=== PATIENT | female | born 1985 | race Caucasian/White ===

== ENCOUNTER 2018-12-07 18:08 | Emergency (ER) | payer SELFPAY ==
[~2018-12-07] VITALS: Ht 154.9 cm; Wt 52.0 kg
[2018-12-07 18:11] VITALS: BP 122/68
--- NOTE | 2018-12-07 18:22 | NUR ---
Pt presents to ED with c/o RLQ pain, right flank pain radiating in to right sciatic pain. NADN. Pt c/o burning with urination. Pt denies n/v/d, sob, cp, trauma. Pt provided ua cup and ambulates with steady gait and balance to restroom. No obvious defecits observed.
[2018-12-07 18:47] LABS: MICROSCOPIC NOT IND
--- NOTE | 2018-12-07 18:57 | NUR ---
Provided report to HARI Clay. All questions answered. HARI Clay to assume care of pt.
[2018-12-07 19:01] LABS: CULTURE INDICATED? NO
[2018-12-07 19:37] LABS: BASOPHILS # (AUTO) 0.03 x10^3/uL (0-0.1); BASOPHILS % (AUTO) 1 % (0-1); EOSINOPHILS % (AUTO) 2 % (1-7); LYMPHOCYTES # (AUTO) 1.97 x10^3/uL (1-3.4); LYMPHOCYTES % (AUTO) 34 % (22-44); MD NO; MEAN CORPUSCULAR HEMOGLOBIN 31.4 pg (27.0-34.8); MEAN CORPUSCULAR HGB CONC 32.9 g/dL (32.4-35.8); MEAN CORPUSCULAR VOLUME 95.3 fL (80-100); MEAN PLATELET VOLUME 8.3 fL (7.4-10.4); MONOCYTES # (AUTO) 0.61 x10^3/uL (0.2-0.8); MONOCYTES % (AUTO) 10 % (2-9); NEUTROPHILS # (AUTO) 3.17 x10^3/uL (1.8-6.8); NEUTROPHILS % (AUTO) 54 % (42-75); PLATELET COUNT 275 x10^3/uL (130-400); RED BLOOD COUNT 4.34 x10^6/uL (3.82-5.3); RED CELL DISTRIBUTION WIDTH 12.4 % (9.6-15.2)
[2018-12-07 19:45] LABS: ALBUMIN 3.9 g/dL (3.4-5.0); ANION GAP 7 mmol/L (5-15); CALCIUM 8.8 mg/dL (8.5-10.1); CHLORIDE 106 mmol/L (98-107); CREATININE 0.97 mg/dL (0.55-1.02)
[2018-12-07] MEDS ORDERED: HYDROcodone/APAP 5/325 TABLET ONE (20:46)
[2018-12-07] MEDS ORDERED: CEFTRIAXONE 250 MG ONE (20:46)
[2018-12-07] MEDS ORDERED: AZITHROMYCIN 250 MG TABLET ONE (20:48)
[2018-12-07] MEDS ORDERED: CEFTRIAXONE 250 MG IM ONE (21:00)
[2018-12-07] MEDS ORDERED: AZITHROMYCIN 500 MG TABLET PO ONE (21:00)
[2018-12-07] MEDS ORDERED: HYDROcodone/APAP 5/325 TABLET PO ONE (21:00)
[2018-12-07] MEDS ORDERED: metroNIDAZOLE 500 MG TABLET PO ONE (21:00)
[2018-12-07] MEDS ORDERED: metroNIDAZOLE 500 MG TABLET ONE (21:02)
--- NOTE | 2018-12-07 21:03 | NUR ---
PT MEDICATED ORDERED PELVIC EXAM COMPLETE AND AWAITING TEST RESULTS. PT TEARFUL BUT TOLERATED PROCEDURE.
[2018-12-07 21:07] LABS: CLUE CELLS NONE SEEN (NONE SEEN); WET PREP WBCS NONE SEEN (FEW)
== END 2018-12-07 21:33 | disposition home or self-care (01) ==
LOC: ED 21:00
DX: N73.0 Acute parametritis and pelvic cellulitis (principal); R10.31 Right lower quadrant pain
CPT/HCPCS: 36415; 73502; 76830; 80048; 81003; 82040; 84703; 85025; 87210; 87491; 87591; 87808; 96372; 99284; J0696

== ENCOUNTER 2020-10-03 18:16 | Emergency (ER) | payer MEDICAID ==
[~2020-10-03] VITALS: Ht 154.9 cm; Wt 47.8 kg
[2020-10-03 18:20] VITALS: BP 102/76
[2020-10-03 18:49] LABS: BASOPHILS % (AUTO) 1 % (0-1); EOSINOPHILS % (AUTO) 1 % (1-7); LYMPHOCYTES % (AUTO) 20 % (22-44); MD NO; MEAN CORPUSCULAR HEMOGLOBIN 31.2 pg (27.0-34.8); MEAN CORPUSCULAR HGB CONC 33.7 g/dL (32.4-35.8); MEAN PLATELET VOLUME 7.6 fL (7.4-10.4); MONOCYTES % (AUTO) 8 % (2-9); NEUTROPHILS % (AUTO) 71 % (42-75); PLATELET COUNT 376 x10^3/uL (130-400); RED BLOOD COUNT 4.08 x10^6/uL (3.82-5.3); RED CELL DISTRIBUTION WIDTH 12.1 % (9.6-15.2)
[2020-10-03 19:00] LABS: ANION GAP 5 mmol/L (5-15); CHLORIDE 107 mmol/L (98-107); CREATININE 0.83 mg/dL (0.55-1.02)
[2020-10-03] MEDS ORDERED: HYDROmorphone 1 MG/ML, 1ML INJ IVPush PRN (19:00)
[2020-10-03] MEDS ORDERED: SODIUM CHLORIDE FLUSH 10ML SYR IVF ONE (19:00)
[2020-10-03] MEDS ORDERED: KETOROLAC 30 MG/1 ML IVPush ONE (19:00)
[2020-10-03 19:01] LABS: ALANINE AMINOTRANSFERASE 24 U/L (12-78)
--- NOTE | 2020-10-03 19:01 | NUR ---
US AT BS, CANCELLED US AND MEDICATION ORDER VERIFIED WITH ERP. 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 REPORT TO DONTA NORIEGA.
--- NOTE | 2020-10-03 19:01 | NUR ---
REPORT FROM WILLIAM NORIEGA
[2020-10-03 19:05] LABS: ALKALINE PHOSPHATASE 64 U/L (45-117); TOTAL PROTEIN 7.1 g/dL (6.4-8.2)
[2020-10-03 19:06] LABS: BILIRUBIN,TOTAL < 0.1 mg/dL (0.2-1.0)
[2020-10-03] MEDS ORDERED: KETOROLAC 30 MG/1 ML ONE (19:11)
--- NOTE | 2020-10-03 19:20 | NUR ---
PT REFUSING UA, STATES SHE GAVE UA AT [facility], HAS RESULTS WITH HER.
--- NOTE | 2020-10-03 20:17 | NUR ---
PT TO LEAVE AMA, STATES "I DON'T WANT TO WAIT HERE FOR HOURS FOR THIS, I DONT UNDERSTAND WHY I WAS TOLD TO EVEN COME HERE". ERP DR VIVEROS UPDATED. PT SIGNED AMA PAPERWORK. PT WITH STEADY GAIT.
== END 2020-10-03 20:20 | disposition left against medical advice (07) ==
LOC: ED 18:48
DX: N93.8 Other specified abnormal uterine and vaginal bleeding (principal); G89.29 Other chronic pain; R10.2 Pelvic and perineal pain; K59.00 Constipation, unspecified; F17.200 Nicotine dependence, unspecified, uncomplicated
CPT/HCPCS: 36415; 80053; 84703; 85025; 96374; 99283; J1885